=== PATIENT | male | born 1955 | race Hispanic/Latino ===

== ENCOUNTER 2017-07-14 08:50 | Outpatient (CLI) | payer OTHER ==
--- NOTE | 2017-07-14 12:19 | XRay Report ---
XRAY RIGHT KNEE 4 THREE VIEWS: 07/14/17 CLINICAL: Right knee pain. FINDINGS: Mild medial joint space narrowing with small osteophytes. The lateral joint space is normal. Small patellofemoral osteophytes. A small quadriceps insertion enthesophyte.No joint effusion.Normal soft tissues. IMPRESSION: Mild osteoarthritis involving the medial knee joint and the patellofemoral joint. Quadriceps enthesopathy.
== END 2017-07-14 08:51 | disposition home or self-care (01) ==
LOC: SPVIMAG 08:50
PROVIDERS: ATTEND Orthopaedic Surgery Sports Medicine
DX: M17.11 Unilateral primary osteoarthritis, right knee (principal); M76.891 Other specified enthesopathies of right lower limb, excluding foot